=== PATIENT | male | born 1985 | race Caucasian/White ===

== ENCOUNTER 2016-12-26 16:50 | Emergency (ER) | payer MEDICAID ==
[~2016-12-26] VITALS: Ht 165.1 cm; Wt 71.8 kg
[2016-12-26 19:16] VITALS: BP 135/77
== END 2016-12-26 19:16 | disposition home or self-care (01) ==
LOC: ED 16:50
DX: M25.561 Pain in right knee (principal); M25.562 Pain in left knee; R53.83 Other fatigue; H53.8 Other visual disturbances; Z79.1 Long term (current) use of non-steroidal anti-inflammatories (NSAID)
CPT/HCPCS: J1885

== ENCOUNTER 2017-06-20 07:46 | Emergency (ER) | payer MEDICAID ==
[~2017-06-20] VITALS: Ht 165.1 cm; Wt 71.3 kg
[2017-06-20 08:45] VITALS: BP 138/88
== END 2017-06-20 10:17 | disposition home or self-care (01) ==
LOC: ED 07:46
DX: M54.5 Low back pain (principal); M19.90 Unspecified osteoarthritis, unspecified site

== ENCOUNTER 2017-08-24 08:27 | Emergency (ER) | payer MEDICAID ==
[~2017-08-24] VITALS: Ht 165.1 cm; Wt 68.9 kg
[2017-08-24 08:39] VITALS: Ht 165.1 cm; Wt 68.9 kg
[2017-08-24 09:38] VITALS: BP 124/80
== END 2017-08-24 09:38 | disposition home or self-care (01) ==
LOC: ED 08:27
DX: S05.12XA Contusion of eyeball and orbital tissues, left eye, initial encounter (principal); S09.90XA Unspecified injury of head, initial encounter; W50.0XXA Accidental hit or strike by another person, initial encounter; Y93.89 Activity, other specified; Y92.89 Other specified places as the place of occurrence of the external cause; Y99.8 Other external cause status

== ENCOUNTER 2017-10-25 10:42 | Emergency (ER) | payer MEDICAID ==
[~2017-10-25] VITALS: Ht 162.6 cm; Wt 74.8 kg
[2017-10-25 10:58] VITALS: BP 114/83; Ht 162.6 cm; Wt 74.8 kg
== END 2017-10-25 12:13 | disposition home or self-care (01) ==
LOC: ED 10:42
DX: M25.552 Pain in left hip (principal); M25.551 Pain in right hip; M25.561 Pain in right knee; M54.5 Low back pain; M19.90 Unspecified osteoarthritis, unspecified site

== ENCOUNTER 2018-12-26 17:46 | Emergency (ER) | payer OTHER ==
[~2018-12-26] VITALS: Ht 165.1 cm; Wt 68.5 kg
[2018-12-26 18:08] VITALS: Ht 165.1 cm; Wt 68.5 kg
[2018-12-26 19:29] VITALS: BP 128/62
== END 2018-12-26 19:29 | disposition home or self-care (01) ==
LOC: ED 17:46
DX: T63.301A Toxic effect of unspecified spider venom, accidental (unintentional), initial encounter (principal); M19.90 Unspecified osteoarthritis, unspecified site; Y92.89 Other specified places as the place of occurrence of the external cause
CPT/HCPCS: J0696